=== PATIENT | male | born 1950 | race Caucasian/White ===

== ENCOUNTER 2021-03-12 15:03 | Emergency (ER) | payer MEDICARE ==
[2021-03-12] MEDS ORDERED: KETOROLAC 30 MG/ML VIAL IVP STA (15:52)
--- NOTE | 2021-03-12 15:54 | ED Physician Documentation ---
PD HPI HEADACHE - Stated complaint Stated Complaint: FACIAL PX/SWELLING - Chief complaint Chief Complaint: Heent - History obtained from History obtained from: Patient - Additional information Additional information: 5 days ago started to get pain in the left jaw. Since then its been progressive with facial swelling and difficulty chewing due to pain. No noted fevers. Review of Systems Constitutional: reports: Reviewed and negative Eyes: reports: Reviewed and negative Ears: reports: Reviewed and negative Nose: reports: Reviewed and negative Throat: reports: Reviewed and negative PD PAST MEDICAL HISTORY - Present Medications Home Medications: Ambulatory Orders Medication Instructions Recorded Confirmed Amox/Clav 875/125 [Augmentin] 1 each PO Q12H #20 tablet 03/12/21 - Allergies Allergies/Adverse Reactions: Allergies Allergy/AdvReac Type Severity Reaction Status Date / Time No Known Drug Allergies Allergy Verified 03/12/21 15:12 PD ED PE NORMAL - Vitals Vital signs reviewed: Yes - General General: Alert and oriented X 3, No acute distress - HEENT HEENT: PERRL, EOMI, Other (Generally poor dentition with some tenderness of the left mandibular molar. There is overlying facial swelling there but over the TMJ and parotid. No TMJ clicking but a lot of pain with range of motion of the jaw. TMs are normal.) - Neck Neck: Supple, no meningeal sign, No bony TTP - Neuro Neuro: Alert and oriented X 3 Results - Vitals Vitals: Vital Signs - 24 hr 03/12/21 15:12 Temperature 36.5 C Heart Rate 85 Respiratory 16 Rate Blood Pressure 153/94 H O2 Saturation 95 Oxygen O2 Source Room air - Labs Labs: Laboratory Tests 03/12/21 03/12/21 15:57 15:57 WBC 7.6 RBC 5.11 Hgb 16.4 Hct 47.4 MCV 92.8 MCH 32.1 H MCHC 34.6 RDW 13.2 Plt Count 141 MPV 9.6 Neut # (Auto) 5.0 Lymph # (Auto) 1.7 Glenn # (Auto) 0.7 Eos # (Auto) 0.2 Baso # (Auto) 0.0 Absolute Nucleated RBC 0.00 Nucleated RBC % 0.0 Sodium 135 Potassium 4.1 Chloride 97 L Carbon Dioxide 27 Anion Gap 11.0 BUN 10 Creatinine 1.0 Estimated GFR (MDRD) 74 L Glucose 117 H Calcium 9.3 PD MEDICAL DECISION MAKING - ED course ED course: 71-year-old gentleman presents with progressive facial pain and some swelling in the setting of having some poor and slightly tender dentition. Differential includes parotitis versus dental infection. CT of the face done without evidence of parotitis so I suspect it is simply a dental infection. He is started on Augmentin. He declined prescription pain medication. Departure - Departure Disposition: Home, Self Care Clinical Impression: Dental infection Condition: Good Record reviewed to determine appropriate education?: Yes Instructions: ED Tooth Pain Follow-Up: [facility] [Provider Admit Priv/Credential] - Prescriptions: Amox/Clav 875/125 [Augmentin] 1 each PO Q12H #20 tablet Comments: You can take ibuprofen, 600 mg every 6 hours as needed for pain in addition to Tylenol, 2 extra strength tablets every 8 hours. You should follow-up with the dental surgeon, his name is on this form, call Monday for an appointment. Return if worsening.
[2021-03-12] MEDS ORDERED: IOVERSOL 320 100 ML VIAL IVP ONE ×2 (15:58→17:30)
[2021-03-12 16:10] LABS: BASOPHILS % (AUTO) 0.5 %; EOSINOPHILS # (AUTO) 0.2 10^3/uL (0.0-0.7); EOSINOPHILS % (AUTO) 2.6 %; HCT - HEMATOCRIT 47.4 % (42.0-52.0); HGB - HEMOGLOBIN 16.4 g/dL (14.0-18.0); LYMPHOCYTES # (AUTO) 1.7 10^3/uL (1.5-3.5); MEAN CORPUSCULAR HEMOGLOBIN 32.1 pg (27.0-31.0); MEAN CORPUSCULAR HGB CONC 34.6 g/dL (32.0-36.0); MEAN CORPUSCULAR VOLUME 92.8 fL (80.0-94.0); MEAN PLATELET VOLUME 9.6 fL (7.4-11.4); MONOCYTES # (AUTO) 0.7 10^3/uL (0.0-1.0); MONOCYTES % (AUTO) 8.8 %; NEUTROPHILS % (AUTO) 65.8 %; PLT - PLATELET COUNT 141 10^3/uL (130-450); RED BLOOD COUNT 5.11 10^6/uL (4.70-6.10); RED CELL DISTRIBUTION WIDTH 13.2 % (12.0-15.0); WHITE BLOOD COUNT 7.6 x10^3/uL (4.8-10.8)
[2021-03-12 16:15] LABS: CALCIUM 9.3 mg/dL (8.5-10.3); POTASSIUM 4.1 mmol/L (3.5-5.0)
--- NOTE | 2021-03-12 17:00 | CT Report ---
PROCEDURE: MAXILLOFACIAL W INDICATIONS: L facial pain CONTRAST: IV CONTRAST: Optiray 320 ml: 100 PO CONTRAST: *NO PO CONTRAST TECHNIQUE: After the administration of intravenous contrast, 3.0 mm axial sections acquired from the mid-neck to the frontal sinuses, with coronal reformatting. For radiation dose reduction, the following was use d: automated exposure control, adjustment of mA and/or kV according to patient size. COMPARISON: None. FINDINGS: Image quality: Excellent. Soft tissues: No edema, masses, or fluid collections. No enlarged lymph nodes. Vascular: Visualized vascular structures appear patent throughout. Bony vascular foramina and canal s appear normal. Bones: Facial bones appear intact, without fractures, erosions, or destruction. Visualized portions of the skull base and auditory canals also appear normal. Sinuses: Mild right maxillary mucosal thickening is present. Mild to moderate ethmoid as well as bila teral minimal frontal, left maxillary and bilateral sphenoid sinus mucosal thickening is present. IMPRESSION: Overall mild scattered sinus disease. No visualized fractures. No areas of fluid collection or inflammatory change. Reviewed by: Jennifer Rodriguez MD on 03/12/2021 4:59 PM PDT Approved by: Jennifer Rodriguez MD on 03/12/2021 4:59 PM PDT Station ID: [id number]
[2021-03-12] MEDS ORDERED: AMOX/CLAV 875 MG/125 MG TABLET PO STA (17:13)
[2021-03-12 17:28] VITALS: BP 169/93
== END 2021-03-12 17:31 | disposition home or self-care (01) ==
LOC: ED 15:03
DX: K04.7 Periapical abscess without sinus (principal)
CPT/HCPCS: 36415; 70487; 80048; 85025; 96374; 99283; 99284; A9270; Q9967